=== PATIENT | female | born 1970 | race Caucasian/White ===

== ENCOUNTER 2016-11-11 13:25 | Emergency (ER) | payer OTHER ==
[~2016-11-11] VITALS: Ht 175.3 cm; Wt 74.4 kg
[~2016-11-11 13:25] MED LIST: OMEP40CA PO
[2016-11-11] MEDS ORDERED: TDAP DIPH,PERTUSS,TET VAC/PF 0.5 ML DISP.SYRIN IM ONE ×2 (14:15→14:41)
[2016-11-11] MEDS ORDERED: predniSONE 20 MG TABLET PO ONE (14:15)
[2016-11-11] MEDS ORDERED: predniSONE 50 MG TABLET ONE (14:42)
[2016-11-11] MEDS ORDERED: predniSONE 10 MG TABLET ONE (14:42)
--- NOTE | 2016-11-11 14:42 | NUR ---
PT WAS EVALUATED BY DR DIANE. PT WAS MEDICATED ACCORDING TO ER MD CHAUDHARY. PT TOLERATED TO MEDICATION WITHOUT COMPLICATIONS. PT WAS D/C TO HOME. D/C INSTRUCTIONS GIVEN TO THE PT.
[2016-11-11 14:45] VITALS: BP 130/72
== END 2016-11-11 14:46 | disposition home or self-care (01) ==
LOC: ER 13:25
DX: J45.901 Unspecified asthma with (acute) exacerbation (principal); F17.200 Nicotine dependence, unspecified, uncomplicated; E03.9 Hypothyroidism, unspecified; Z88.6 Allergy status to analgesic agent
CPT/HCPCS: 90715; A4663; J7512

== ENCOUNTER 2016-11-14 14:42 | Emergency (ER) | payer OTHER ==
[~2016-11-14] VITALS: Ht 175.3 cm; Wt 74.4 kg
[2016-11-14] MEDS ORDERED: PRED50TA PO (14:55)
--- NOTE | 2016-11-14 15:02 | NUR ---
Pt ambulatory to bed 3, dr yoon at bedside for exam.
--- NOTE | 2016-11-14 16:00 | NUR ---
Pt dc'ed home w/ aci .
[2016-11-14 16:03] VITALS: BP 128/74
== END 2016-11-14 16:03 | disposition home or self-care (01) ==
LOC: ER 14:50
DX: J40 Bronchitis, not specified as acute or chronic (principal); E03.9 Hypothyroidism, unspecified; F17.200 Nicotine dependence, unspecified, uncomplicated
CPT/HCPCS: 71010; 99283; A4663

== ENCOUNTER 2017-08-27 12:18 | Emergency (ER) | payer MEDICAID ==
[~2017-08-27] VITALS: Ht 165.1 cm; Wt 77.1 kg
[~2017-08-27 12:18] MED LIST changes: -OMEP40CA PO; +PRED50TA PO
[2017-08-27] MEDS ORDERED: IV NORMAL SALINE 1000 ML BAG IV ONE (12:30)
[2017-08-27] MEDS ORDERED: ONDANSETRON 4 MG/2 ML VIAL IV ONE (12:30)
[2017-08-27] MEDS ORDERED: LORAZEPAM 2 MG/1 ML VIAL IV ONE (12:30)
[2017-08-27 12:48] LABS: BASOPHILS % (AUTO) 0.3 % (0.0-2.0); EOSINOPHILS % (AUTO) 0.6 % (0.0-7.0); HEMATOCRIT 45.3 % (31.2-41.9); LYMPHOCYTES # (AUTO) 1.1 K/uL (20.0-40.0); LYMPHOCYTES % (AUTO) 19.4 % (20.5-51.5); MEAN CORPUSCULAR HEMOGLOBIN 34.8 uug (24.7-32.8); MEAN CORPUSCULAR HGB CONC 35 g/dL (32.3-35.6); MEAN CORPUSCULAR VOLUME 98.6 fL (75.5-95.3); MONOCYTES # (AUTO) 0.4 K/uL (2.0-10.0); MONOCYTES % (AUTO) 7.3 % (0.0-11.0); NEUTROPHILS # (AUTO) 4.2 K/uL (1.8-8.9); NEUTROPHILS % (AUTO) 72.4 % (38.5-71.5); PLATELET COUNT (AUTO) 234 K/uL (179-408); WHITE BLOOD COUNT (AUTO) 5.8 K/uL (3.8-11.8)
[2017-08-27] MEDS ORDERED: ONDANSETRON 4 MG/2 ML VIAL ONE (12:58)
[2017-08-27] MEDS ORDERED: LORAZEPAM 2 MG/1 ML VIAL ONE (12:59)
[2017-08-27 13:14] LABS: BILIRUBIN,DIRECT 0.2 mg/dL (0.0-0.2); BILIRUBIN,TOTAL 0.6 mg/dL (0.2-1.0); POTASSIUM 3.7 mmol/L (3.5-5.1); TOTAL PROTEIN, SERUM 7.1 g/dL (6.4-8.2)
--- NOTE | 2017-08-27 13:50 | NUR ---
IV removed. Catheter intact and site benign. Pressure and 4x4 gauze applied to site. No bleeding noted.
[2017-08-27 13:51] VITALS: BP 122/87
--- NOTE | 2017-08-27 13:52 | NUR ---
Patient discharged to home in stable conditon. Written and verbal after care instructions given. Patient verbalizes understanding of instructions.
== END 2017-08-27 13:53 | disposition home or self-care (01) ==
LOC: ER 12:18
DX: F11.23 Opioid dependence with withdrawal (principal); F41.9 Anxiety disorder, unspecified; F17.200 Nicotine dependence, unspecified, uncomplicated; E03.9 Hypothyroidism, unspecified
CPT/HCPCS: 36415; 83690; 84703; 85025; A4663; J2060; J2405; J7030

== ENCOUNTER 2017-09-07 18:40 | Emergency (ER) | payer MEDICAID ==
[~2017-09-07] VITALS: Ht 165.1 cm; Wt 77.1 kg
[2017-09-07] MEDS ORDERED: LORAZEPAM 2 MG/1 ML VIAL IV ONE (19:15)
[2017-09-07] MEDS ORDERED: METOCLOPRAMIDE HCL 10 MG/2 ML VIAL IV ONE (19:15)
[2017-09-07] MEDS ORDERED: IV NORMAL SALINE 1000 ML BAG IV ONE (19:15)
[2017-09-07 19:37] LABS: BASOPHILS # (AUTO) 0.1 K/uL (0.0-8.0); BASOPHILS % (AUTO) 0.5 % (0.0-2.0); EOSINOPHILS % (AUTO) 0.1 % (0.0-7.0); HEMATOCRIT 45.9 % (31.2-41.9); HEMOGLOBIN 15.8 g/dL (10.9-14.3); LYMPHOCYTES # (AUTO) 0.9 K/uL (20.0-40.0); LYMPHOCYTES % (AUTO) 7.9 % (20.5-51.5); MEAN CORPUSCULAR HEMOGLOBIN 34.2 uug (24.7-32.8); MEAN CORPUSCULAR HGB CONC 34 g/dL (32.3-35.6); MEAN CORPUSCULAR VOLUME 99.7 fL (75.5-95.3); MONOCYTES # (AUTO) 0.8 K/uL (2.0-10.0); MONOCYTES % (AUTO) 6.9 % (0.0-11.0); NEUTROPHILS % (AUTO) 84.6 % (38.5-71.5); PLATELET COUNT (AUTO) 284 K/uL (179-408); RED BLOOD CELL COUNT(AUTO) 4.61 MIL/uL (3.63-4.92); WHITE BLOOD COUNT (AUTO) 11.9 K/uL (3.8-11.8)
[2017-09-07 19:41] LABS: CREATININE 0.9 mg/dL (0.6-1.3); POTASSIUM 3.9 mmol/L (3.5-5.1)
--- NOTE | 2017-09-07 19:46 | NUR ---
PT IN BED. BOYFRIEND IS AT BEDSIDE. A&OX4. VSS. BREATHING IS REGULAR AND UNLABORED. LABS DRAWN AND ORDERED MED GIVEN.
[2017-09-07 19:47] LABS: BILIRUBIN,DIRECT 0.3 mg/dL (0.0-0.2); BILIRUBIN,TOTAL 0.8 mg/dL (0.2-1.0); TOTAL PROTEIN, SERUM 7.8 g/dL (6.4-8.2)
[2017-09-07] MEDS ORDERED: METOCLOPRAMIDE HCL 10 MG/2 ML VIAL ONE (19:47)
[2017-09-07] MEDS ORDERED: LORAZEPAM 2 MG/1 ML VIAL ONE (19:48)
--- NOTE | 2017-09-07 21:15 | NUR ---
PT DISCHARGED. BOYFRIEND TO GIVE RIDE HOME. PT INSTRUCTED NOT TO DRIVE FOR THE REST OF THE NIGHT. PT VERBALIZED UNDERSTANDING OF THESE INSTRUCTIONS.
[2017-09-07 21:18] VITALS: BP 129/72
== END 2017-09-07 21:15 | disposition home or self-care (01) ==
LOC: ER 18:41
DX: G89.29 Other chronic pain (principal); E86.0 Dehydration; E03.9 Hypothyroidism, unspecified; R11.2 Nausea with vomiting, unspecified; F17.200 Nicotine dependence, unspecified, uncomplicated
CPT/HCPCS: 36415; 70030-TC; 83690; 84703; 85025; 93005; A4663; J2060; J2765; J7030

== ENCOUNTER 2018-09-11 16:31 | Emergency (ER) | payer MEDICAID, OTHER ==
[~2018-09-11] VITALS: Ht 175.3 cm; Wt 81.6 kg
[2018-09-11] MEDS ORDERED: IV NORMAL SALINE 1000 ML BAG IV ONE ×2 (16:45→18:15)
[2018-09-11] MEDS ORDERED: LORAZEPAM 2 MG/1 ML VIAL IV ONE (16:45)
[2018-09-11] MEDS ORDERED: ONDANSETRON 4 MG/2 ML VIAL IV ONE (16:45)
[2018-09-11] MEDS ORDERED: ONDANSETRON 4 MG/2 ML VIAL ONE (16:49)
[2018-09-11] MEDS ORDERED: LORAZEPAM 2 MG/1 ML VIAL ONE (16:50)
[2018-09-11 17:08] LABS: BASOPHILS % (AUTO) 0.4 % (0.0-2.0); EOSINOPHILS # (AUTO) 0.1 K/uL (0.0-0.7); HEMATOCRIT 46.8 % (31.2-41.9); HEMOGLOBIN 16.3 g/dL (10.9-14.3); LYMPHOCYTES # (AUTO) 1.5 K/uL (20.0-40.0); LYMPHOCYTES % (AUTO) 17.6 % (20.5-51.5); MEAN CORPUSCULAR HEMOGLOBIN 34.8 uug (24.7-32.8); MEAN CORPUSCULAR HGB CONC 35 g/dL (32.3-35.6); MEAN CORPUSCULAR VOLUME 99.6 fL (75.5-95.3); MONOCYTES # (AUTO) 0.5 K/uL (2.0-10.0); MONOCYTES % (AUTO) 6.4 % (0.0-11.0); NEUTROPHILS # (AUTO) 6.2 K/uL (1.8-8.9); NEUTROPHILS % (AUTO) 74.6 % (38.5-71.5); PLATELET COUNT (AUTO) 273 K/uL (179-408); RED BLOOD CELL COUNT(AUTO) 4.69 MIL/uL (3.63-4.92); WHITE BLOOD COUNT (AUTO) 8.3 K/uL (3.8-11.8)
[2018-09-11 17:14] LABS: CREATININE 0.9 mg/dL (0.6-1.3); POTASSIUM 3.5 mmol/L (3.5-5.1)
[2018-09-11 17:20] LABS: BILIRUBIN,DIRECT 0.1 mg/dL (0.0-0.2); BILIRUBIN,TOTAL 0.5 mg/dL (0.2-1.0); TOTAL PROTEIN, SERUM 7.5 g/dL (6.4-8.2)
[2018-09-11 18:31] LABS: *BILIRUBIN,URIN NEGATIVE (NEGATIVE); *BLOOD, URINE Trace-lysed (NEGATIVE); *COLOR,URINE YELLOW (YELLOW); *KETONES,URINE NEGATIVE (NEGATIVE); *UROBILINOGEN,URINE 0.2 E.U./dl (NORMAL); LEUKOCYTE ESTERASE ,URINE NEGATIVE (NEGATIVE); NITRITE, URINE NEGATIVE (NEGATIVE); UGLUCOSE NEGATIVE (NEGATIVE)
[2018-09-11 18:33] LABS: *URINE HCG, QUAL NEGATIVE (NEGATIVE)
--- NOTE | 2018-09-11 18:35 | NUR ---
IV removed. Catheter intact and site benign. Pressure and 4x4 gauze applied to site. No bleeding noted. Patient discharged to home in stable conditon & brisk steady gait. Written and verbal after care instructions given to patient and boyfriend. Patient and boyfriend verbalized understanding of instructions.
[2018-09-11 18:39] LABS: *CLARITY,URINE SLIGHTLY HAZY (CLEAR)
[2018-09-11 18:40] LABS: BACTERIA,URINE FEW /HPF (NONE SEEN); RBC,URINE 0-3 /HPF (0-3); SQUAMOUS EPITHELIAL CELL,UR MODERATE /HPF (NONE SEEN); WBC,URINE 0-3 /HPF (0-3)
== END 2018-09-11 18:38 | disposition home or self-care (01) ==
LOC: ER 16:32
DX: F11.23 Opioid dependence with withdrawal (principal); E03.9 Hypothyroidism, unspecified; F17.200 Nicotine dependence, unspecified, uncomplicated
CPT/HCPCS: 36415; 80048; 80076; 81001; 83690; 84703; 85025; 93005; 96374; 96375; 99284; J2060; J2405; A4663; J7030

== ENCOUNTER 2018-12-01 13:41 | Emergency (ER) | payer MEDICAID ==
[~2018-12-01] VITALS: Ht 175.3 cm; Wt 81.6 kg
[2018-12-01] MEDS ORDERED: ONDANSETRON 4 MG/2 ML VIAL IV ONE (14:15)
[2018-12-01] MEDS ORDERED: IV NORMAL SALINE 1000 ML BAG IV ONE (14:15)
[2018-12-01] MEDS ORDERED: FAMOTIDINE. 20 MG/2 ML VIAL IV ONE ×2 (14:15→14:17)
[2018-12-01] MEDS ORDERED: LORAZEPAM 2 MG/1 ML VIAL IV ONE (14:15)
[2018-12-01] MEDS ORDERED: LORAZEPAM 2 MG/1 ML VIAL ONE (14:16)
[2018-12-01] MEDS ORDERED: ONDANSETRON 4 MG/2 ML VIAL ONE (14:17)
[2018-12-01 14:23] LABS: BASOPHILS # (AUTO) 0.1 K/uL (0.0-8.0); EOSINOPHILS % (AUTO) 0.3 % (0.0-7.0); HEMATOCRIT 43.6 % (31.2-41.9); HEMOGLOBIN 15.2 g/dL (10.9-14.3); LYMPHOCYTES # (AUTO) 0.9 K/uL (20.0-40.0); LYMPHOCYTES % (AUTO) 8.9 % (20.5-51.5); MEAN CORPUSCULAR HEMOGLOBIN 34.1 uug (24.7-32.8); MEAN CORPUSCULAR HGB CONC 35 g/dL (32.3-35.6); MONOCYTES # (AUTO) 0.8 K/uL (2.0-10.0); MONOCYTES % (AUTO) 7.7 % (0.0-11.0); NEUTROPHILS # (AUTO) 8.3 K/uL (1.8-8.9); NEUTROPHILS % (AUTO) 82.1 % (38.5-71.5); PLATELET COUNT (AUTO) 210 K/uL (179-408); RED BLOOD CELL COUNT(AUTO) 4.45 MIL/uL (3.63-4.92); WHITE BLOOD COUNT (AUTO) 10.1 K/uL (3.8-11.8)
--- NOTE | 2018-12-01 14:28 | NUR ---
PT IS IN ROOM #1B. DR PINO EVALUATED THE PT.
[2018-12-01 14:29] LABS: BILIRUBIN,DIRECT 0.3 mg/dL (0.0-0.2); BILIRUBIN,TOTAL 1.1 mg/dL (0.2-1.0); CREATININE 0.8 mg/dL (0.6-1.3); POTASSIUM 3.4 mmol/L (3.5-5.1); TOTAL PROTEIN, SERUM 6.8 g/dL (6.4-8.2)
[2018-12-01 14:31] LABS: ETHANOL < 3 MG/DL (0-0)
[2018-12-01] MEDS ORDERED: CHLORDIAZEPOXIDE HCL 25 MG CAPSULE PO ONE (15:15)
[2018-12-01] MEDS ORDERED: CHLORDIAZEPOXIDE HCL 25 MG CAPSULE ONE (15:26)
--- NOTE | 2018-12-01 15:35 | NUR ---
PT WAS D/C'D TO HOME. D/C INSTRUCTIONS GIVEN TO THE PT.
[2018-12-01 15:36] VITALS: BP 131/77
== END 2018-12-01 15:37 | disposition home or self-care (01) ==
LOC: ER 13:41
DX: F41.9 Anxiety disorder, unspecified (principal); F10.239 Alcohol dependence with withdrawal, unspecified; F10.10 Alcohol abuse, uncomplicated; E03.9 Hypothyroidism, unspecified; F17.200 Nicotine dependence, unspecified, uncomplicated; Y90.0 Blood alcohol level of less than 20 mg/100 ml
CPT/HCPCS: 36415; 71045; 80048; 80076; 83690; 84702; 85025; 93005; 96361; 96374; 96375; 99284; G0480; J2060; J2405; J3490; A4663; J7030

== ENCOUNTER 2019-01-02 18:15 | Emergency (ER) | payer MEDICAID ==
[~2019-01-02] VITALS: Ht 175.3 cm; Wt 81.6 kg
[2019-01-02] MEDS ORDERED: LORAZEPAM 2 MG/1 ML VIAL IV ONE (18:45)
[2019-01-02] MEDS ORDERED: PANTOPRAZOLE SODIUM 40 MG VIAL IV ONE (18:45)
[2019-01-02] MEDS ORDERED: ONDANSETRON 4 MG/2 ML VIAL IV ONE (18:45)
[2019-01-02] MEDS ORDERED: IV NORMAL SALINE 1000 ML BAG IV ONE (18:45)
[2019-01-02] MEDS ORDERED: ONDANSETRON 4 MG/2 ML VIAL ONE (18:55)
[2019-01-02] MEDS ORDERED: PANTOPRAZOLE SODIUM 40 MG VIAL ONE (18:55)
[2019-01-02] MEDS ORDERED: LORAZEPAM 2 MG/1 ML VIAL ONE (18:56)
[2019-01-02 19:01] LABS: BASOPHILS # (AUTO) 0.1 K/uL (0.0-8.0); BASOPHILS % (AUTO) 0.8 % (0.0-2.0); EOSINOPHILS % (AUTO) 0.2 % (0.0-7.0); HEMOGLOBIN 15.4 g/dL (10.9-14.3); LYMPHOCYTES # (AUTO) 1.3 K/uL (20.0-40.0); MEAN CORPUSCULAR HGB CONC 34 g/dL (32.3-35.6); MEAN CORPUSCULAR VOLUME 96.3 fL (75.5-95.3); MONOCYTES # (AUTO) 0.8 K/uL (2.0-10.0); NEUTROPHILS # (AUTO) 9.3 K/uL (1.8-8.9); PLATELET COUNT (AUTO) 246 K/uL (179-408); RED BLOOD CELL COUNT(AUTO) 4.68 MIL/uL (3.63-4.92); WHITE BLOOD COUNT (AUTO) 11.5 K/uL (3.8-11.8)
[2019-01-02 19:07] LABS: POTASSIUM 3.1 mmol/L (3.5-5.1)
[2019-01-02 19:13] LABS: BILIRUBIN,DIRECT 0.2 mg/dL (0.0-0.2); BILIRUBIN,TOTAL 0.9 mg/dL (0.2-1.0); TOTAL PROTEIN, SERUM 7.5 g/dL (6.4-8.2)
--- NOTE | 2019-01-02 19:43 | NUR ---
IV removed. Catheter intact and site benign. Pressure and 4x4 gauze applied to site. No bleeding noted.
--- NOTE | 2019-01-02 19:47 | NUR ---
Patient discharged to home in stable conditon. Written and verbal after care instructions given. Patient verbalizes understanding of instructions. Pt ambulated out of ER with stable gait with family. Pt's boyfriend to pick her up. All belongings with patient. No acute distress noted. AAox4.
[2019-01-02 19:48] VITALS: BP 127/77
== END 2019-01-02 19:49 | disposition home or self-care (01) ==
LOC: ER 18:15
DX: F10.239 Alcohol dependence with withdrawal, unspecified (principal); E03.9 Hypothyroidism, unspecified; F17.200 Nicotine dependence, unspecified, uncomplicated; Y90.8 Blood alcohol level of 240 mg/100 ml or more
CPT/HCPCS: 36415; 80048; 80076; 83690; 85025; 96361; 96374; 96375; 99283; C9113; J2060; J2405; A4663; J7030

== ENCOUNTER 2019-01-30 08:40 | Emergency (ER) | payer MEDICAID ==
[~2019-01-30] VITALS: Ht 175.3 cm; Wt 81.6 kg
[2019-01-30] MEDS ORDERED: PANTOPRAZOLE SODIUM 40 MG VIAL IV ONE (09:00)
[2019-01-30] MEDS ORDERED: IV NORMAL SALINE 1000 ML BAG IV ONE ×2 (09:00→10:30)
[2019-01-30] MEDS ORDERED: HYDROMORPHONE 1 MG/1 ML DISP.SYRIN IV ONE (09:00)
[2019-01-30] MEDS ORDERED: ONDANSETRON 4 MG/2 ML VIAL IV ONE ×2 (09:00→10:30)
[2019-01-30 09:12] LABS: BASOPHILS # (AUTO) 0.1 K/uL (0.0-8.0); BASOPHILS % (AUTO) 1.2 % (0.0-2.0); EOSINOPHILS % (AUTO) 0.8 % (0.0-7.0); HEMATOCRIT 43.1 % (31.2-41.9); HEMOGLOBIN 14.8 g/dL (10.9-14.3); LYMPHOCYTES # (AUTO) 1.6 K/uL (20.0-40.0); MEAN CORPUSCULAR HEMOGLOBIN 32.9 uug (24.7-32.8); MEAN CORPUSCULAR HGB CONC 34 g/dL (32.3-35.6); MEAN CORPUSCULAR VOLUME 96.1 fL (75.5-95.3); MONOCYTES # (AUTO) 0.6 K/uL (2.0-10.0); NEUTROPHILS # (AUTO) 2.2 K/uL (1.8-8.9); PLATELET COUNT (AUTO) 239 K/uL (179-408); RED BLOOD CELL COUNT(AUTO) 4.49 MIL/uL (3.63-4.92); WHITE BLOOD COUNT (AUTO) 4.5 K/uL (3.8-11.8)
[2019-01-30] MEDS ORDERED: PANTOPRAZOLE SODIUM 40 MG VIAL ONE (09:14)
[2019-01-30] MEDS ORDERED: HYDROMORPHONE 1 MG/1 ML DISP.SYRIN ONE (09:14)
[2019-01-30] MEDS ORDERED: ONDANSETRON 4 MG/2 ML VIAL ONE ×2 (09:14→10:37)
--- NOTE | 2019-01-30 09:22 | NUR ---
PT IS IN ROOM #2B. DR MARRUFO EVALUATED THE PT.
[2019-01-30 09:37] LABS: BILIRUBIN,DIRECT 0.2 mg/dL (0.0-0.2); BILIRUBIN,TOTAL 0.8 mg/dL (0.2-1.0); CREATININE 1.1 mg/dL (0.6-1.3); POTASSIUM 3.8 mmol/L (3.5-5.1); TOTAL PROTEIN, SERUM 6.6 g/dL (6.4-8.2)
[2019-01-30] MEDS ORDERED: LORAZEPAM 2 MG/1 ML VIAL IV ONE (10:30)
[2019-01-30] MEDS ORDERED: LORAZEPAM 2 MG/1 ML VIAL ONE (10:48)
[2019-01-30 11:22] VITALS: BP 137/77
--- NOTE | 2019-01-30 11:22 | NUR ---
PT WAS D/C'd TO HOME. D/C INSTRUCTIONS GIVEN TO THE PT.
== END 2019-01-30 11:23 | disposition home or self-care (01) ==
LOC: ER 08:42
DX: F10.239 Alcohol dependence with withdrawal, unspecified (principal); R19.7 Diarrhea, unspecified; E03.9 Hypothyroidism, unspecified; F17.200 Nicotine dependence, unspecified, uncomplicated; Y90.9 Presence of alcohol in blood, level not specified
CPT/HCPCS: 36415; 80048; 80076; 83690; 85025; 96361; 96374; 96375; 96376; 99283; C9113; J1170; J2060; J2405 ×2; A4663; J7030

== ENCOUNTER 2019-01-31 13:35 | Emergency (ER) | payer MEDICAID ==
[~2019-01-31] VITALS: Ht 175.3 cm; Wt 81.6 kg
[2019-01-31] MEDS ORDERED: IV NORMAL SALINE 1000 ML BAG IV ONE (14:00)
[2019-01-31] MEDS ORDERED: ONDANSETRON HCL 4 MG TABLET PO ONE (14:00)
[2019-01-31] MEDS ORDERED: LORAZEPAM 2 MG/1 ML VIAL IV ONE (14:00)
[2019-01-31] MEDS ORDERED: LORAZEPAM 2 MG/1 ML VIAL ONE (14:19)
[2019-01-31 14:22] LABS: EOSINOPHILS # (AUTO) 0.1 K/uL (0.0-0.7); LYMPHOCYTES # (AUTO) 0.9 K/uL (20.0-40.0); MEAN CORPUSCULAR HGB CONC 34 g/dL (32.3-35.6); MONOCYTES # (AUTO) 0.7 K/uL (2.0-10.0); NEUTROPHILS # (AUTO) 4.5 K/uL (1.8-8.9); RED BLOOD CELL COUNT(AUTO) 4.48 MIL/uL (3.63-4.92)
[2019-01-31 14:26] LABS: BASOPHILS % (AUTO) 0.6 % (0.0-2.0); HEMATOCRIT 43.2 % (31.2-41.9); HEMOGLOBIN 14.5 g/dL (10.9-14.3); LYMPHOCYTES % (AUTO) 13.9 % (20.5-51.5); MEAN CORPUSCULAR HEMOGLOBIN 32.5 uug (24.7-32.8); MEAN CORPUSCULAR VOLUME 96.5 fL (75.5-95.3); MONOCYTES % (AUTO) 11.6 % (0.0-11.0); NEUTROPHILS % (AUTO) 71.9 % (38.5-71.5)
[2019-01-31 14:28] LABS: PLATELET COUNT (AUTO) 177 K/uL (179-408); WHITE BLOOD COUNT (AUTO) 6.3 K/uL (3.8-11.8)
[2019-01-31 14:29] LABS: POTASSIUM 3.5 mmol/L (3.5-5.1)
[2019-01-31] MEDS ORDERED: ONDANSETRON 4 MG/2 ML VIAL ONE (14:29)
[2019-01-31] MEDS ORDERED: ONDANSETRON IV *ER 4 MG/2 ML VIAL IV ONE (14:30)
[2019-01-31] MEDS ORDERED: FAMOTIDINE. 20 MG/2 ML VIAL IV ONE ×2 (14:30)
--- NOTE | 2019-01-31 14:30 | NUR ---
MD AT BEDSIDE FO HISTORY AND PHYSICAL PT RECEIVED AMBULATORY CO NAUSEA AND VOMITING FOR 6 DAYS. ALSO CO TEMPORAL HEADACHE. DENIES TRAUMA, DENIES SOB. UNK ORAL INTAKE FOR THE PAST 6DAYS
[2019-01-31 14:35] LABS: BILIRUBIN,DIRECT 0.4 mg/dL (0.0-0.2); BILIRUBIN,TOTAL 1.5 mg/dL (0.2-1.0); TOTAL PROTEIN, SERUM 6.9 g/dL (6.4-8.2)
--- NOTE | 2019-01-31 14:45 | NUR ---
I OBSERVED PT DRINKING WATER, DENIES N/V.
[2019-01-31 15:32] VITALS: BP 122/78
--- NOTE | 2019-01-31 15:34 | NUR ---
IV removed. Catheter intact and site benign. Pressure and 4x4 gauze applied to site. No bleeding noted.
--- NOTE | 2019-01-31 15:36 | NUR ---
Patient discharged to home in stable conditon. Written and verbal after care instructions given. Patient verbalizes understanding of instructions.
== END 2019-01-31 15:36 | disposition home or self-care (01) ==
LOC: ER 13:35
DX: F10.239 Alcohol dependence with withdrawal, unspecified (principal); K29.20 Alcoholic gastritis without bleeding; E03.9 Hypothyroidism, unspecified; F17.200 Nicotine dependence, unspecified, uncomplicated; Y90.0 Blood alcohol level of less than 20 mg/100 ml
CPT/HCPCS: 36415; 80048; 80076; 85025; 96361; 96374; 96375; 99283; G0480; J2060; J2405; J3490; A4663; J7030

== ENCOUNTER 2019-03-29 10:20 | Emergency (ER) | payer MEDICAID ==
[~2019-03-29] VITALS: Ht 175.3 cm; Wt 90.7 kg
[2019-03-29] MEDS ORDERED: ONDANSETRON 4 MG/2 ML VIAL ONE (10:44)
[2019-03-29] MEDS ORDERED: LORAZEPAM 2 MG/1 ML VIAL ONE ×2 (10:45→13:18)
[2019-03-29] MEDS ORDERED: LORAZEPAM 2 MG/1 ML VIAL IV ONE ×2 (10:45→13:15)
[2019-03-29] MEDS ORDERED: IV NORMAL SALINE 1000 ML BAG IV ONE (10:45)
[2019-03-29] MEDS ORDERED: ONDANSETRON 4 MG/2 ML VIAL IV ONE (10:45)
[2019-03-29 10:47] LABS: BASOPHILS % (AUTO) 0.6 % (0.0-2.0); EOSINOPHILS % (AUTO) 0.1 % (0.0-7.0); HEMATOCRIT 44.8 % (31.2-41.9); HEMOGLOBIN 15.1 g/dL (10.9-14.3); LYMPHOCYTES # (AUTO) 0.8 K/uL (20.0-40.0); LYMPHOCYTES % (AUTO) 10.8 % (20.5-51.5); MEAN CORPUSCULAR HEMOGLOBIN 32.8 uug (24.7-32.8); MEAN CORPUSCULAR HGB CONC 34 g/dL (32.3-35.6); MEAN CORPUSCULAR VOLUME 97.2 fL (75.5-95.3); MONOCYTES # (AUTO) 0.8 K/uL (2.0-10.0); MONOCYTES % (AUTO) 10.2 % (0.0-11.0); NEUTROPHILS # (AUTO) 6.1 K/uL (1.8-8.9); NEUTROPHILS % (AUTO) 78.3 % (38.5-71.5); PLATELET COUNT (AUTO) 301 K/uL (179-408); RED BLOOD CELL COUNT(AUTO) 4.61 MIL/uL (3.63-4.92); WHITE BLOOD COUNT (AUTO) 7.8 K/uL (3.8-11.8)
[2019-03-29 10:54] LABS: CARBON DIOXIDE 23 mmol/L (21-32); CHLORIDE 99 mmol/L (98-107); CREATININE 0.8 mg/dL (0.6-1.3); GLUCOSE 94 mg/dL (74-106); POTASSIUM 3.9 mmol/L (3.5-5.1); UREA NITROGEN, BLOOD 9 mg/dL (7-18)
[2019-03-29 11:06] LABS: ALANINE AMINOTRANSFERASE 39 U/L (14-59); ALKALINE PHOSPHATASE 99 U/L (50-136); ASPARTATE AMINOTRANSFERASE 44 U/L (15-37); BILIRUBIN,DIRECT 0.3 mg/dL (0.0-0.2); TOTAL PROTEIN, SERUM 7.6 g/dL (6.4-8.2)
[2019-03-29 11:09] LABS: LIPASE 1604 U/L (73-393)
[2019-03-29] MEDS ORDERED: IV NORMAL SALINE 250 ML IV ONE (11:47)
[2019-03-29] MEDS ORDERED: IOHEXOL 300MG/ML 100 ML INFUS..BTL ONE (11:47)
[2019-03-29] MEDS ORDERED: SWABABLE VALVE TRANSFER SET EA MC ONE (11:47)
[2019-03-29] MEDS ORDERED: CHLO25CA10 PO (11:48)
[2019-03-29] MEDS ORDERED: PANT40TA4 PO (11:48)
[2019-03-29] MEDS ORDERED: LEVO200T PO (11:48)
[2019-03-29] MEDS ORDERED: ERGO500040 PO (11:48)
[2019-03-29] MEDS ORDERED: ALPR0.255 PO (11:48)
[2019-03-29] MEDS ORDERED: LORA2TAB PO (11:48)
[2019-03-29] MEDS ORDERED: LEVO175T2 PO (11:48)
[2019-03-29] MEDS ORDERED: METH4TAB17 PO (11:48)
--- NOTE | 2019-03-29 11:50 | NUR ---
Pt signed consent for IV contrast.
--- NOTE | 2019-03-29 11:58 | NUR ---
pt left er for ct scan.
--- NOTE | 2019-03-29 12:20 | NUR ---
Pt back from ct. resting w/ both eyes closed. NAD noted.
[2019-03-29 12:44] LABS: *BILIRUBIN,URIN 1+ (NEGATIVE); *BLOOD, URINE 2+ (NEGATIVE); *CLARITY,URINE CLEAR (CLEAR); *COLOR,URINE YELLOW (YELLOW); *KETONES,URINE 4+ (NEGATIVE); *UROBILINOGEN,URINE 0.2 E.U./dl (NORMAL); LEUKOCYTE ESTERASE ,URINE NEGATIVE (NEGATIVE); NITRITE, URINE NEGATIVE (NEGATIVE); UGLUCOSE NEGATIVE (NEGATIVE)
[2019-03-29 13:17] LABS: BACTERIA,URINE FEW /HPF (NONE SEEN)
[2019-03-29 13:18] LABS: SQUAMOUS EPITHELIAL CELL,UR MODERATE /HPF (NONE SEEN)
--- NOTE | 2019-03-29 14:22 | NUR ---
Pt is aware of transfer and signed consent for transfer. No c/o discomfort at this time.
--- NOTE | 2019-03-29 14:43 | NUR ---
Called report to [facility], to Triny SPENCER. Report given to marine cargo surveyor. Pt left ER in stable condition, all belongings sent w/ pt.
== END 2019-03-29 14:50 | disposition short-term general hospital (02) ==
LOC: ER 10:20
DX: F10.239 Alcohol dependence with withdrawal, unspecified (principal); K85.90 Acute pancreatitis without necrosis or infection, unspecified; R19.00 Intra-abdominal and pelvic swelling, mass and lump, unspecified site; F32.9 Major depressive disorder, single episode, unspecified; F41.9 Anxiety disorder, unspecified; E03.9 Hypothyroidism, unspecified; F17.200 Nicotine dependence, unspecified, uncomplicated; Z79.899 Other long term (current) drug therapy; Y90.9 Presence of alcohol in blood, level not specified
CPT/HCPCS: 36415; 74177; 76705; 80048; 80076; 81000; 81001; 83690; 84702; 85025; 96361; 96374; 96375; 96376; 99285; J2060 ×2; J2405; Q9967; A4663; J7030; J7050

== ENCOUNTER 2019-07-03 16:24 | Emergency (ER) | payer MEDICAID ==
[~2019-07-03] VITALS: Ht 175.3 cm; Wt 90.7 kg
[~2019-07-03 16:24] MED LIST changes: +ALPR0.255 PO; +CHLO25CA10 PO; +ERGO500040 PO; +LEVO175T2 PO; +LEVO200T PO; +LORA2TAB PO; +METH4TAB17 PO; +PANT40TA4 PO; -PRED50TA PO
--- NOTE | 2019-07-03 16:47 | NUR ---
Dr. Muniz at the bedside for MSE.
[2019-07-03] MEDS ORDERED: KETOROLAC TROMETHAMINE 15 MG INJ ONE (16:55)
[2019-07-03] MEDS ORDERED: METOCLOPRAMIDE HCL 10 MG/2 ML VIAL ONE (16:55)
[2019-07-03] MEDS ORDERED: METOCLOPRAMIDE HCL 10 MG/2 ML VIAL IV ONE (17:00)
[2019-07-03] MEDS ORDERED: IV NORMAL SALINE 1000 ML BAG IV ONE (17:00)
[2019-07-03] MEDS ORDERED: KETOROLAC TROMETHAMINE 15 MG INJ IVP ONE (17:00)
[2019-07-03 17:17] LABS: BASOPHILS # (AUTO) 0.1 K/uL (0.0-8.0); EOSINOPHILS % (AUTO) 0.5 % (0.0-7.0); HEMATOCRIT 44.3 % (31.2-41.9); HEMOGLOBIN 14.9 g/dL (10.9-14.3); LYMPHOCYTES # (AUTO) 1.8 K/uL (20.0-40.0); LYMPHOCYTES % (AUTO) 27.8 % (20.5-51.5); MEAN CORPUSCULAR HGB CONC 34 g/dL (32.3-35.6); MEAN CORPUSCULAR VOLUME 94.9 fL (75.5-95.3); MONOCYTES # (AUTO) 0.5 K/uL (2.0-10.0); MONOCYTES % (AUTO) 8.3 % (0.0-11.0); NEUTROPHILS # (AUTO) 4.1 K/uL (1.8-8.9); NEUTROPHILS % (AUTO) 62.4 % (38.5-71.5); PLATELET COUNT (AUTO) 331 K/uL (179-408); RED BLOOD CELL COUNT(AUTO) 4.67 MIL/uL (3.63-4.92); WHITE BLOOD COUNT (AUTO) 6.5 K/uL (3.8-11.8)
[2019-07-03 17:27] LABS: BILIRUBIN,DIRECT 0.2 mg/dL (0.0-0.2); BILIRUBIN,TOTAL 0.9 mg/dL (0.2-1.0); CREATININE 0.9 mg/dL (0.6-1.3); POTASSIUM 3.8 mmol/L (3.5-5.1); TOTAL PROTEIN, SERUM 7.9 g/dL (6.4-8.2)
[2019-07-03] MEDS ORDERED: diphenhydrAMINE 50 MG/1 ML VIAL IV ONE (17:45)
[2019-07-03] MEDS ORDERED: diphenhydrAMINE 50 MG/1 ML VIAL ONE (17:49)
--- NOTE | 2019-07-03 18:35 | NUR ---
Patient discharged to home in stable conditon. Written and verbal after care instructions given. Patient verbalizes understanding of instructions.
== END 2019-07-03 18:35 | disposition home or self-care (01) ==
LOC: ER 16:24
DX: R11.2 Nausea with vomiting, unspecified (principal); R19.7 Diarrhea, unspecified; F10.239 Alcohol dependence with withdrawal, unspecified; E03.9 Hypothyroidism, unspecified; F17.200 Nicotine dependence, unspecified, uncomplicated; Z79.899 Other long term (current) drug therapy; Y90.5 Blood alcohol level of 100-119 mg/100 ml
CPT/HCPCS: 36415; 80048; 80076; 82140; 83690; 84484; 84702; 85025; 85730; 96361; 96374; 96375; 99283; G0480; J1200; J1885; J2765; 70030-TC; A4663; J7030

== ENCOUNTER 2019-07-22 10:25 | Emergency (ER) | payer MEDICAID ==
[~2019-07-22] VITALS: Ht 175.3 cm; Wt 86.2 kg
[2019-07-22] MEDS ORDERED: KETOROLAC TROMETHAMINE 30 MG INJ ONE (10:41)
[2019-07-22] MEDS ORDERED: KETOROLAC TROMETHAMINE 30 MG INJ IM ONE (10:45)
--- NOTE | 2019-07-22 10:52 | NUR ---
Patient discharged to home in stable conditon. Written and verbal after care instructions given. Patient verbalizes understanding of instructions.
== END 2019-07-22 10:55 | disposition home or self-care (01) ==
LOC: ER 10:25
DX: M25.562 Pain in left knee (principal); E03.9 Hypothyroidism, unspecified; F17.290 Nicotine dependence, other tobacco product, uncomplicated; Z79.899 Other long term (current) drug therapy
CPT/HCPCS: 96372; 99283; 99406; J1885; A4663

== ENCOUNTER 2019-07-26 18:49 | Emergency (ER) | payer MEDICAID ==
[~2019-07-26] VITALS: Ht 175.3 cm; Wt 81.6 kg
--- NOTE | 2019-07-26 19:45 | NUR ---
Dr. Muniz at bedside for MSE
[2019-07-26] MEDS ORDERED: MORPHINE SULFATE 2 MG/1 ML DISP.SYRIN IV ONE (20:00)
[2019-07-26] MEDS ORDERED: ONDANSETRON 4 MG/2 ML VIAL IV ONE ×2 (20:00→22:30)
[2019-07-26] MEDS ORDERED: IV NORMAL SALINE 1000 ML BAG IV ONE (20:00)
[2019-07-26 20:02] LABS: BASOPHILS % (AUTO) 0.7 % (0.0-2.0); EOSINOPHILS # (AUTO) 0.2 K/uL (0.0-0.7); EOSINOPHILS % (AUTO) 2.8 % (0.0-7.0); HEMATOCRIT 43.4 % (31.2-41.9); HEMOGLOBIN 14.7 g/dL (10.9-14.3); LYMPHOCYTES # (AUTO) 1.2 K/uL (20.0-40.0); LYMPHOCYTES % (AUTO) 18.5 % (20.5-51.5); MEAN CORPUSCULAR HEMOGLOBIN 31.7 uug (24.7-32.8); MEAN CORPUSCULAR HGB CONC 34 g/dL (32.3-35.6); MEAN CORPUSCULAR VOLUME 93.4 fL (75.5-95.3); MONOCYTES # (AUTO) 0.5 K/uL (2.0-10.0); MONOCYTES % (AUTO) 7.4 % (0.0-11.0); NEUTROPHILS # (AUTO) 4.5 K/uL (1.8-8.9); NEUTROPHILS % (AUTO) 70.6 % (38.5-71.5); PLATELET COUNT (AUTO) 283 K/uL (179-408); RED BLOOD CELL COUNT(AUTO) 4.65 MIL/uL (3.63-4.92); WHITE BLOOD COUNT (AUTO) 6.4 K/uL (3.8-11.8)
[2019-07-26] MEDS ORDERED: ONDANSETRON 4 MG/2 ML VIAL ONE ×2 (20:05→22:30)
[2019-07-26] MEDS ORDERED: MORPHINE SULFATE 4 MG/1 ML DISP.SYRIN ONE ×2 (20:05→22:29)
--- NOTE | 2019-07-26 20:11 | NUR ---
Patient taken to CT scan
[2019-07-26 20:14] LABS: CREATININE 0.9 mg/dL (0.6-1.3)
[2019-07-26 20:19] LABS: BILIRUBIN,DIRECT 0.1 mg/dL (0.0-0.2); BILIRUBIN,TOTAL 0.3 mg/dL (0.2-1.0); TOTAL PROTEIN, SERUM 7.1 g/dL (6.4-8.2)
--- NOTE | 2019-07-26 20:28 | NUR ---
Patient back from CT scan in stable condition
--- NOTE | 2019-07-26 21:31 | NUR ---
Patient is resting comfortably in bed with eyes closed, easily arousable. Breathing even and unlabored. NAD noted
[2019-07-26] MEDS ORDERED: MORPHINE SULFATE 4 MG/1 ML DISP.SYRIN IV ONE (22:30)
--- NOTE | 2019-07-26 22:51 | NUR ---
Patient in bed sleeping but easily arousable. Breathing even and unlabored. NAD noted
--- NOTE | 2019-07-26 23:27 | NUR ---
IV removed. Catheter intact and site benign. Pressure and 4x4 gauze applied to site. No bleeding noted. Patient discharged to home in stable conditon. Written and verbal after care instructions given. Patient verbalizes understanding of instructions. Patient ambulating with steady gait. Boyfriend at bedside to drive and take patient home
[2019-07-26 23:31] VITALS: BP 124/70
== END 2019-07-26 23:27 | disposition home or self-care (01) ==
LOC: ER 18:56
DX: K29.70 Gastritis, unspecified, without bleeding (principal); F10.10 Alcohol abuse, uncomplicated; R19.00 Intra-abdominal and pelvic swelling, mass and lump, unspecified site; E03.9 Hypothyroidism, unspecified; F17.200 Nicotine dependence, unspecified, uncomplicated; Z79.899 Other long term (current) drug therapy; Y90.6 Blood alcohol level of 120-199 mg/100 ml
CPT/HCPCS: 36415; 71045; 74176; 80048; 80076; 82140; 83690; 84484; 85025; 85730; 93005; 96361; 96374; 96375; 96376; 99284; G0480; J2270 ×2; J2405 ×2; 70030-TC; A4663; J7030

== ENCOUNTER 2019-07-29 15:01 | Emergency (ER) | END 2019-07-29 17:24 | disposition home or self-care (01) | DX: K29.70 Gastritis, unspecified, without bleeding (principal); E03.9 Hypothyroidism, unspecified; F17.200 Nicotine dependence, unspecified, uncomplicated; Z79.899 Other long term (current) drug therapy | CPT/HCPCS: 36415; 71045; 80048; 80076; 83690; 84484; 85025; 85730; 93005; 96361; 96374; 96375; 99284; J1170; J2405 ==

== ENCOUNTER 2019-08-24 11:40 | Emergency (ER) | payer MEDICAID ==
[~2019-08-24] VITALS: Ht 175.3 cm; Wt 88.5 kg
[~2019-08-24 11:40] MED LIST changes: -ALPR0.255 PO; -LORA2TAB PO; -PANT40TA4 PO
--- NOTE | 2019-08-24 12:00 | NUR ---
Patient ambulated with stable gait. Speech is clear, speaks in complete sentences. No acute neuro deficits noted. A/Ox4. Patient came for c/o s/p ERCP dull pain. ERCP performed 08/18/19. Denies any n/v but states she has had episodes of diarrhea. Respiratory even and unlabored, no cough no sob. Denies any cp.
[2019-08-24] MEDS ORDERED: IV NORMAL SALINE 250 ML IV ONE (12:09)
[2019-08-24] MEDS ORDERED: IOHEXOL 300MG/ML 100 ML INFUS..BTL ONE (12:09)
[2019-08-24] MEDS ORDERED: SWABABLE VALVE TRANSFER SET EA MC ONE (12:09)
[2019-08-24] MEDS ORDERED: MORPHINE SULFATE 2 MG/1 ML DISP.SYRIN IV ONE (12:15)
[2019-08-24] MEDS ORDERED: IV NORMAL SALINE 1000 ML BAG IV ONE (12:15)
[2019-08-24] MEDS ORDERED: ONDANSETRON 4 MG/2 ML VIAL IV ONE (12:15)
[2019-08-24 12:18] LABS: *BILIRUBIN,URIN NEGATIVE (NEGATIVE); *BLOOD, URINE 1+ (NEGATIVE); *CLARITY,URINE CLOUDY (CLEAR); *COLOR,URINE YELLOW (YELLOW); *KETONES,URINE NEGATIVE (NEGATIVE); *UROBILINOGEN,URINE 0.2 E.U./dl (NORMAL); LEUKOCYTE ESTERASE ,URINE NEGATIVE (NEGATIVE); NITRITE, URINE NEGATIVE (NEGATIVE); UGLUCOSE NEGATIVE (NEGATIVE)
[2019-08-24] MEDS ORDERED: MORPHINE SULFATE 4 MG/1 ML DISP.SYRIN ONE (12:18)
[2019-08-24] MEDS ORDERED: ONDANSETRON 4 MG/2 ML VIAL ONE (12:18)
[2019-08-24 12:21] LABS: BASOPHILS # (AUTO) 0.1 K/uL (0.0-8.0); BASOPHILS % (AUTO) 0.8 % (0.0-2.0); EOSINOPHILS # (AUTO) 0.1 K/uL (0.0-0.7); EOSINOPHILS % (AUTO) 1.6 % (0.0-7.0); HEMATOCRIT 42.1 % (31.2-41.9); HEMOGLOBIN 14.3 g/dL (10.9-14.3); LYMPHOCYTES # (AUTO) 0.9 K/uL (20.0-40.0); LYMPHOCYTES % (AUTO) 12.1 % (20.5-51.5); MEAN CORPUSCULAR HEMOGLOBIN 31.9 uug (24.7-32.8); MEAN CORPUSCULAR HGB CONC 34 g/dL (32.3-35.6); MONOCYTES # (AUTO) 0.6 K/uL (2.0-10.0); NEUTROPHILS % (AUTO) 77.5 % (38.5-71.5); PLATELET COUNT (AUTO) 298 K/uL (179-408); RED BLOOD CELL COUNT(AUTO) 4.47 MIL/uL (3.63-4.92); WHITE BLOOD COUNT (AUTO) 7.7 K/uL (3.8-11.8)
[2019-08-24 12:28] LABS: BACTERIA,URINE MODERATE /HPF (NONE SEEN); MUCUS,URINE FEW /LPF (0-FEW); RBC,URINE 0-3 /HPF (0-3); SQUAMOUS EPITHELIAL CELL,UR MODERATE /HPF (NONE SEEN); WBC,URINE 0-3 /HPF (0-3)
[2019-08-24 12:28] LABS: POTASSIUM 3.8 mmol/L (3.5-5.1)
[2019-08-24 12:34] LABS: BILIRUBIN,DIRECT 0.1 mg/dL (0.0-0.2); BILIRUBIN,TOTAL 0.5 mg/dL (0.2-1.0); TOTAL PROTEIN, SERUM 7.3 g/dL (6.4-8.2)
[2019-08-24 12:47] LABS: *URINE HCG, QUAL NEGATIVE (NEGATIVE)
--- NOTE | 2019-08-24 13:17 | NUR ---
Patient back in room from CT in stable condition.
[2019-08-24] MEDS ORDERED: FAMOTIDINE 20 MG TABLET PO ONE (13:45)
--- NOTE | 2019-08-24 13:53 | NUR ---
Dr. Chad WALTON paged, awaiting call back.
[2019-08-24] MEDS ORDERED: FAMOTIDINE 20 MG TABLET ONE (13:54)
--- NOTE | 2019-08-24 15:16 | NUR ---
Patient discharged to home in stable conditon. Written and verbal after care instructions given. Patient verbalizes understanding of instructions. IV removed. Catheter intact and site benign. Pressure and 4x4 gauze applied to site. No bleeding noted. Patient ambulated with stable gait. instructed patient that she may not drive, states that she will get picked up.
[2019-08-24 15:17] VITALS: BP 131/92
== END 2019-08-24 15:18 | disposition home or self-care (01) ==
LOC: ER 11:40
DX: N83.201 Unspecified ovarian cyst, right side (principal); E03.9 Hypothyroidism, unspecified; F17.200 Nicotine dependence, unspecified, uncomplicated; Z79.899 Other long term (current) drug therapy
CPT/HCPCS: 36415; 74177; 80048; 80076; 81000; 81001; 83690; 84703; 85025; 87077; 87086; 96374; 96375; 99284; J2270; J2405; Q9967; A4663; J7030; J7050

== ENCOUNTER 2019-09-16 13:10 | Emergency (ER) | payer MEDICAID ==
[~2019-09-16] VITALS: Ht 175.3 cm; Wt 88.5 kg
[2019-09-16] MEDS ORDERED: HYDROMORPHONE 1 MG/1 ML DISP.SYRIN IV ONE (13:30)
[2019-09-16] MEDS ORDERED: IV NORMAL SALINE 1000 ML BAG IV ONE (13:30)
[2019-09-16] MEDS ORDERED: ONDANSETRON 4 MG/2 ML VIAL IV ONE (13:30)
[2019-09-16] MEDS ORDERED: HYDROMORPHONE 2 MG/1 ML DISP.SYRIN ONE (13:34)
[2019-09-16] MEDS ORDERED: ONDANSETRON 4 MG/2 ML VIAL ONE (13:34)
--- NOTE | 2019-09-16 14:23 | NUR ---
Patient is resting comfortably on gurney with eyes closed. Lights dimmed. Comfort and safety measures maintained, NAD.
--- NOTE | 2019-09-16 15:19 | NUR ---
Patient is resting comfortably on gurney with eyes closed. Patient said that she feels better & wants to go home, MD notified.
--- NOTE | 2019-09-16 15:21 | NUR ---
IV removed. Catheter intact and site benign. Pressure and 4x4 gauze applied to site. No bleeding noted. Patient discharged to home in stable condition & brisk steady gait. Written and verbal after care instructions given to patient. Patient verbalized understanding & compliance of instructions. Patient said that her boyfriend is giving her a ride home.
== END 2019-09-16 15:24 | disposition home or self-care (01) ==
LOC: ER 13:10
DX: G43.909 Migraine, unspecified, not intractable, without status migrainosus (principal); E03.9 Hypothyroidism, unspecified; F17.200 Nicotine dependence, unspecified, uncomplicated; Z79.899 Other long term (current) drug therapy
CPT/HCPCS: 96374; 96375; 99284; J1170; J2405; A4663; J7030

== ENCOUNTER 2019-09-30 17:07 | Emergency (ER) | payer MEDICAID ==
[~2019-09-30] VITALS: Ht 172.7 cm; Wt 90.7 kg
[2019-09-30] MEDS ORDERED: ONDANSETRON 4 MG/2 ML VIAL IV ONE (19:00)
[2019-09-30] MEDS ORDERED: IV NORMAL SALINE 1000 ML BAG IV ONE (19:00)
[2019-09-30] MEDS ORDERED: HYDROMORPHONE 1 MG/1 ML DISP.SYRIN IV ONE (19:00)
[2019-09-30 20:39] VITALS: BP 121/96
--- NOTE | 2019-09-30 20:39 | NUR ---
Patient discharged to home in stable conditon. Written and verbal after care instructions given. Patient verbalizes understanding of instructions. PATIENT LEFT WITH STABLE GAIT.
== END 2019-09-30 20:40 | disposition home or self-care (01) ==
LOC: ER 17:08
DX: G43.909 Migraine, unspecified, not intractable, without status migrainosus (principal); R11.2 Nausea with vomiting, unspecified; R19.7 Diarrhea, unspecified; F17.200 Nicotine dependence, unspecified, uncomplicated; R05 Cough; E03.9 Hypothyroidism, unspecified; Z60.2 Problems related to living alone; Z79.899 Other long term (current) drug therapy
CPT/HCPCS: 96361; 96374; 96375; 99283; J1170; J2405; A4663; J7030

== ENCOUNTER 2019-12-06 10:37 | Emergency (ER) | payer MEDICAID ==
[~2019-12-06] VITALS: Ht 172.7 cm; Wt 90.7 kg
[2019-12-06] MEDS ORDERED: ADENOSINE 6 MG/2 ML SYR IV ONE ×4 (10:54→11:45)
--- NOTE | 2019-12-06 10:55 | NUR ---
Patient is AOx4, speaking in complete sentences, speech is clear. Patient is able to follow /comprehend directions. Gait is stable. NOTED HR AT 198BPM. ERMD AWARE. No CP. No respiratory distress noted. Respirations even & unlabored with symmetrical chest rise. No adventitious sounds noted. CC: +worsening MIGRAINE, +PHOTOPHOBIA Denies hitting head, LOC, diplopia,, balance problems, vertigo/dizziness, difficulty concentrating, phonophobia, nausea, vomiting, diarrhea.
[2019-12-06] MEDS ORDERED: IV NORMAL SALINE 1000 ML BAG IV ONE (11:00)
[2019-12-06] MEDS ORDERED: LORAZEPAM 2 MG/1 ML VIAL ONE (11:05)
[2019-12-06] MEDS ORDERED: KETOROLAC TROMETHAMINE 30 MG INJ ONE (11:08)
[2019-12-06] MEDS ORDERED: ESCI10TA PO (11:11)
[2019-12-06] MEDS ORDERED: KETOROLAC TROMETHAMINE 30 MG INJ IVP ONE (11:15)
[2019-12-06] MEDS ORDERED: LORAZEPAM 2 MG/1 ML VIAL IV ONE (11:15)
[2019-12-06 11:18] LABS: BASOPHILS % (AUTO) 0.3 % (0.0-2.0); EOSINOPHILS % (AUTO) 0.3 % (0.0-7.0); HEMATOCRIT 46.6 % (31.2-41.9); HEMOGLOBIN 15.7 g/dL (10.9-14.3); LYMPHOCYTES # (AUTO) 0.5 K/uL (20.0-40.0); LYMPHOCYTES % (AUTO) 7.2 % (20.5-51.5); MEAN CORPUSCULAR HEMOGLOBIN 31.9 uug (24.7-32.8); MEAN CORPUSCULAR HGB CONC 34 g/dL (32.3-35.6); MEAN CORPUSCULAR VOLUME 94.7 fL (75.5-95.3); MONOCYTES # (AUTO) 1.1 K/uL (2.0-10.0); MONOCYTES % (AUTO) 14.7 % (0.0-11.0); NEUTROPHILS # (AUTO) 5.6 K/uL (1.8-8.9); NEUTROPHILS % (AUTO) 77.5 % (38.5-71.5); PLATELET COUNT (AUTO) 227 K/uL (179-408); RED BLOOD CELL COUNT(AUTO) 4.92 MIL/uL (3.63-4.92); WHITE BLOOD COUNT (AUTO) 7.2 K/uL (3.8-11.8)
[2019-12-06 11:29] LABS: BILIRUBIN,DIRECT 0.1 mg/dL (0.0-0.2); BILIRUBIN,TOTAL 0.2 mg/dL (0.2-1.0); CREATININE 0.9 mg/dL (0.6-1.3); POTASSIUM 3.6 mmol/L (3.5-5.1); TOTAL PROTEIN, SERUM 7.7 g/dL (6.4-8.2)
--- NOTE | 2019-12-06 12:35 | NUR ---
Pt asleep, on L RECUMBENT at 103bpm o2sat at 95%, RA, NAD
[2019-12-06] MEDS ORDERED: methylPREDNISolone SOD SUCC 125 MG/2 ML VIAL IV ONE (13:00)
[2019-12-06] MEDS ORDERED: ACETAMINOPHEN ES 500 MG TABLET PO ONE (13:00)
[2019-12-06] MEDS ORDERED: ACETAMINOPHEN ES 500 MG TABLET ONE (13:01)
[2019-12-06] MEDS ORDERED: methylPREDNISolone SOD SUCC 125 MG/2 ML VIAL ONE ×2 (13:01→13:09)
--- NOTE | 2019-12-06 13:09 | NUR ---
Pt asleep but easily roused, still c/o 03/12 migraine Pt able to tolerate PO meds
--- NOTE | 2019-12-06 14:25 | NUR ---
Patient discharged to home in stable condition. Written and verbal after care instructions given. Patient verbalizes understanding of instructions. Stressed follow up or return to ER for worsening s/s. iv removed, dresssed.
[2019-12-06 17:03] VITALS: BP 110/72
== END 2019-12-06 14:25 | disposition home or self-care (01) ==
LOC: ER 10:37
DX: I47.1 Supraventricular tachycardia (principal); G43.909 Migraine, unspecified, not intractable, without status migrainosus; F17.201 Nicotine dependence, unspecified, in remission; Z82.49 Family history of ischemic heart disease and other diseases of the circulatory system; E03.9 Hypothyroidism, unspecified; F10.20 Alcohol dependence, uncomplicated; Y90.9 Presence of alcohol in blood, level not specified
CPT/HCPCS: 36415; 80048; 80076; 84484; 85025; 93005; 96361; 96374; 96375; 99291; J0153 ×2; J1885; J2060; J2930 ×2; 70030-TC; A4663; A9150; J7030

== ENCOUNTER 2019-12-09 06:11 | Emergency (ER) | payer MEDICAID ==
[~2019-12-09] VITALS: Ht 172.7 cm; Wt 90.7 kg
[~2019-12-09 06:11] MED LIST changes: +ESCI10TA PO
--- NOTE | 2019-12-09 06:25 | NUR ---
PATIENT ARRIVED AT THE ER WITH C/O CP/N/V/D/MIGRAINE SINCE LAST PM AFTER ETOH CONSUMPTION.
--- NOTE | 2019-12-09 06:47 | NUR ---
Dr. Abbasi at bedside for MSE.
[2019-12-09] MEDS ORDERED: KETOROLAC TROMETHAMINE 15 MG INJ ONE (06:54)
[2019-12-09] MEDS ORDERED: ONDANSETRON 4 MG/2 ML VIAL ONE (06:54)
[2019-12-09] MEDS ORDERED: IV NORMAL SALINE 1000 ML BAG IV ONE (07:00)
[2019-12-09] MEDS ORDERED: KETOROLAC TROMETHAMINE 15 MG INJ IVP ONE (07:00)
[2019-12-09] MEDS ORDERED: ONDANSETRON 4 MG/2 ML VIAL IV ONE (07:00)
--- NOTE | 2019-12-09 07:07 | NUR ---
Change of shift report given to RN Sepi.
[2019-12-09 07:14] LABS: BASOPHILS % (AUTO) 0.6 % (0.0-2.0); HEMATOCRIT 43.4 % (31.2-41.9); HEMOGLOBIN 15.1 g/dL (10.9-14.3); LYMPHOCYTES # (AUTO) 0.5 K/uL (20.0-40.0); LYMPHOCYTES % (AUTO) 6.4 % (20.5-51.5); MEAN CORPUSCULAR HEMOGLOBIN 32.5 uug (24.7-32.8); MEAN CORPUSCULAR HGB CONC 35 g/dL (32.3-35.6); MEAN CORPUSCULAR VOLUME 93.2 fL (75.5-95.3); MONOCYTES # (AUTO) 0.6 K/uL (2.0-10.0); MONOCYTES % (AUTO) 7.9 % (0.0-11.0); NEUTROPHILS # (AUTO) 6.1 K/uL (1.8-8.9); NEUTROPHILS % (AUTO) 85.1 % (38.5-71.5); PLATELET COUNT (AUTO) 199 K/uL (179-408); RED BLOOD CELL COUNT(AUTO) 4.66 MIL/uL (3.63-4.92); WHITE BLOOD COUNT (AUTO) 7.1 K/uL (3.8-11.8)
[2019-12-09 07:25] LABS: CARBON DIOXIDE 21 mmol/L (21-32); CHLORIDE 99 mmol/L (98-107); CREATININE 1.3 mg/dL (0.6-1.3); GLUCOSE 107 mg/dL (74-106); POTASSIUM 3.7 mmol/L (3.5-5.1); UREA NITROGEN, BLOOD 10 mg/dL (7-18)
--- NOTE | 2019-12-09 07:25 | NUR ---
PT REQUESTING FOR " SOMETHING TO SETTLE MY NERVES". NOTIFIED.
[2019-12-09] MEDS ORDERED: LORAZEPAM 2 MG/1 ML VIAL IV ONE (07:30)
[2019-12-09 07:31] LABS: ALANINE AMINOTRANSFERASE 38 U/L (14-59); ALKALINE PHOSPHATASE 80 U/L (50-136); ASPARTATE AMINOTRANSFERASE 45 U/L (15-37); BILIRUBIN,DIRECT < 0.1 mg/dL (0.0-0.2); BILIRUBIN,TOTAL 0.3 mg/dL (0.2-1.0); TOTAL PROTEIN, SERUM 7.2 g/dL (6.4-8.2)
[2019-12-09] MEDS ORDERED: LORAZEPAM 2 MG/1 ML VIAL ONE (07:31)
[2019-12-09 07:32] LABS: *BILIRUBIN,URIN NEGATIVE (NEGATIVE); *BLOOD, URINE NEGATIVE (NEGATIVE); *CLARITY,URINE HAZY (CLEAR); *COLOR,URINE YELLOW (YELLOW); *KETONES,URINE TRACE (NEGATIVE); *UROBILINOGEN,URINE 0.2 E.U./dl (NORMAL); LEUKOCYTE ESTERASE ,URINE NEGATIVE (NEGATIVE); NITRITE, URINE NEGATIVE (NEGATIVE); PH,URINE 5.5 (5.0-8.0); UGLUCOSE NEGATIVE (NEGATIVE)
[2019-12-09 07:39] LABS: LIPASE 248 U/L (73-393)
[2019-12-09 07:41] LABS: BACTERIA,URINE NONE SEEN /HPF (NONE SEEN); MUCUS,URINE MODERATE /LPF (0-FEW); RBC,URINE 0-3 /HPF (0-3); SQUAMOUS EPITHELIAL CELL,UR MODERATE /HPF (NONE SEEN); WBC,URINE 0-3 /HPF (0-3)
[2019-12-09 07:42] LABS: *URINE HCG, QUAL NEGATIVE (NEGATIVE)
[2019-12-09 08:16] VITALS: BP 121/77
--- NOTE | 2019-12-09 08:17 | NUR ---
Patient discharged to home in stable condition. Written and verbal after care instructions given. Patient verbalizes understanding of instructions. pt walks in steady gait. pt not driving. Stressed follow up or return to ER for worsening s/s.
[2019-12-10] MEDS ORDERED: CHLO25CA22 PO (14:14)
== END 2019-12-09 08:17 | disposition home or self-care (01) ==
LOC: ER 06:16
DX: R11.10 Vomiting, unspecified (principal); G43.909 Migraine, unspecified, not intractable, without status migrainosus; F10.10 Alcohol abuse, uncomplicated; E03.9 Hypothyroidism, unspecified; R07.9 Chest pain, unspecified; R53.81 Other malaise
CPT/HCPCS: 36415; 80048; 80076; 81001; 83690; 84703; 85025; 93005; 96361; 96374; 96375; 99284; J1885; J2060; J2405; A4663; J7030

== ENCOUNTER 2019-12-10 13:59 | Emergency (ER) | payer MEDICAID ==
[~2019-12-10] VITALS: Ht 172.7 cm; Wt 90.7 kg
[2019-12-10] MEDS ORDERED: CHLO25CA22 PO (14:14)
[2019-12-10] MEDS ORDERED: BENZONATATE 100 MG CAPSULE PO ONE (14:45)
[2019-12-10] MEDS ORDERED: IBUPROFEN 800 MG TABLET PO ONE (14:45)
[2019-12-10] MEDS ORDERED: IBUPROFEN 800 MG TABLET ONE (14:47)
[2019-12-10] MEDS ORDERED: BENZONATATE 100 MG CAPSULE ONE (14:47)
[2019-12-10] MEDS ORDERED: levoFLOXacin 750 MG TABLET PO ONE (15:45)
[2019-12-10] MEDS ORDERED: HYDROCODONE/APAP 10-325 MG TABLET PO ONE (15:45)
[2019-12-10] MEDS ORDERED: HYDROCODONE/APAP 10-325 MG TABLET ONE (15:48)
[2019-12-10] MEDS ORDERED: levoFLOXacin 750 MG TABLET ONE (15:48)
--- NOTE | 2019-12-10 15:59 | NUR ---
PT ON ISOLATION/AIRBORNE/DROPLET PRECAUTIONS MONITORED ACCORDINGLY
--- NOTE | 2019-12-10 16:00 | NUR ---
COVID TEST INITIATED(NASOPAHRYNX)
--- NOTE | 2019-12-10 16:14 | NUR ---
Patient discharged to home in stable condition. Written and verbal after care instructions given. Patient verbalizes understanding of instructions. Stressed follow up or return to ER for worsening s/s. ambulatory w. stable gait
[2019-12-10 16:19] VITALS: BP 124/90
== END 2019-12-10 16:20 | disposition home or self-care (01) ==
LOC: ER 14:04
DX: U07.1 COVID-19 (principal); J12.89 Other viral pneumonia; G43.909 Migraine, unspecified, not intractable, without status migrainosus; E03.9 Hypothyroidism, unspecified; Z79.890 Hormone replacement therapy; Z90.49 Acquired absence of other specified parts of digestive tract; F10.20 Alcohol dependence, uncomplicated
CPT/HCPCS: 71045; A4663

== ENCOUNTER 2020-09-10 13:38 | Emergency (ER) | payer MEDICAID ==
[~2020-09-10] VITALS: Ht 172.7 cm; Wt 93.0 kg
[~2020-09-10 13:38] MED LIST changes: +CHLO25CA22 PO; -METH4TAB17 PO
[2020-09-10] MEDS ORDERED: HYDR-3980 PO (13:55)
[2020-09-10] MEDS ORDERED: ATOR10TA PO (13:55)
--- NOTE | 2020-09-10 13:55 | NUR ---
at bedside for assessment
[2020-09-10] MEDS ORDERED: ONDANSETRON 4 MG/2 ML VIAL IV ONE ×2 (14:00→15:15)
[2020-09-10] MEDS ORDERED: IV NORMAL SALINE 1000 ML BAG IV ONE (14:00)
[2020-09-10] MEDS ORDERED: HYDROMORPHONE 1 MG/1 ML DISP.SYRIN IV ONE ×2 (14:00→15:15)
[2020-09-10] MEDS ORDERED: ONDANSETRON 4 MG/2 ML VIAL ONE ×2 (14:06→15:13)
[2020-09-10] MEDS ORDERED: HYDROMORPHONE 1 MG/1 ML DISP.SYRIN ONE ×2 (14:06→15:12)
[2020-09-10] MEDS ORDERED: IV NORMAL SALINE 250 ML IV ONE (14:27)
[2020-09-10] MEDS ORDERED: IOHEXOL 300MG/ML 100 ML INFUS..BTL ONE (14:27)
[2020-09-10] MEDS ORDERED: SWABABLE VALVE TRANSFER SET EA MC ONE (14:27)
[2020-09-10 14:28] LABS: HEMATOCRIT 44.9 % (31.2-41.9); HEMOGLOBIN 15.1 g/dL (10.9-14.3); MEAN CORPUSCULAR HEMOGLOBIN 29.9 uug (24.7-32.8); MEAN CORPUSCULAR HGB CONC 34 g/dL (32.3-35.6); MEAN CORPUSCULAR VOLUME 89.1 fL (75.5-95.3); NEUTROPHILS % (AUTO) 66.7 % (38.5-71.5); PLATELET COUNT (AUTO) 272 K/uL (179-408); POTASSIUM 3.6 mmol/L (3.5-5.1); RED BLOOD CELL COUNT(AUTO) 5.04 MIL/uL (3.63-4.92); WHITE BLOOD COUNT (AUTO) 7.7 K/uL (3.8-11.8)
[2020-09-10 14:29] LABS: BASOPHILS % (AUTO) 0.5 % (0.0-2.0); EOSINOPHILS # (AUTO) 0.3 K/uL (0.0-0.7); EOSINOPHILS % (AUTO) 3.6 % (0.0-7.0); LYMPHOCYTES # (AUTO) 1.2 K/uL (20.0-40.0); MONOCYTES % (AUTO) 13.2 % (0.0-11.0); NEUTROPHILS # (AUTO) 5.1 K/uL (1.8-8.9)
[2020-09-10 14:38] LABS: *BILIRUBIN,URIN NEGATIVE (NEGATIVE); *BLOOD, URINE 2+ (NEGATIVE); *COLOR,URINE YELLOW (YELLOW); *KETONES,URINE NEGATIVE (NEGATIVE); *UROBILINOGEN,URINE 0.2 E.U./dl (NORMAL); LEUKOCYTE ESTERASE ,URINE TRACE (NEGATIVE); NITRITE, URINE NEGATIVE (NEGATIVE); UGLUCOSE NEGATIVE (NEGATIVE)
[2020-09-10 14:39] LABS: BILIRUBIN,DIRECT 0.1 mg/dL (0.0-0.2); BILIRUBIN,TOTAL 0.5 mg/dL (0.2-1.0); TOTAL PROTEIN, SERUM 7.5 g/dL (6.4-8.2)
[2020-09-10 14:47] LABS: *CLARITY,URINE HAZY (CLEAR); BACTERIA,URINE FEW /HPF (NONE SEEN); SQUAMOUS EPITHELIAL CELL,UR MODERATE /HPF (NONE SEEN)
--- NOTE | 2020-09-10 15:36 | NUR ---
Patient discharged to home in stable condition. Patient able to ambulate with steady gait, states will drive her home, Rx given, took all belngings, no signs of acute distress noted. Written and verbal after care instructions given. Patient verbalizes understanding of instructions. Stressed follow up or return to ER for worsening s/s.
[2020-09-10 15:38] VITALS: BP 121/86
== END 2020-09-10 15:39 | disposition home or self-care (01) ==
LOC: ER 13:38
DX: R10.31 Right lower quadrant pain (principal); R10.32 Left lower quadrant pain; K57.90 Diverticulosis of intestine, part unspecified, without perforation or abscess without bleeding; Z90.49 Acquired absence of other specified parts of digestive tract; E03.9 Hypothyroidism, unspecified; Z90.710 Acquired absence of both cervix and uterus; Z98.890 Other specified postprocedural states; F17.200 Nicotine dependence, unspecified, uncomplicated; F10.20 Alcohol dependence, uncomplicated; F32.9 Major depressive disorder, single episode, unspecified; F41.9 Anxiety disorder, unspecified; Z79.890 Hormone replacement therapy; Z79.899 Other long term (current) drug therapy
CPT/HCPCS: 36415; 74177; 80048; 80076; 81001; 83605; 83690; 85025; 96361; 96374; 96375; 96376; 99285; J1170 ×2; J2405 ×2; Q9967; A4663; J7030; J7050

== ENCOUNTER 2020-09-24 10:35 | Emergency (ER) | payer MEDICAID ==
[~2020-09-24] VITALS: Ht 172.7 cm; Wt 93.0 kg
[~2020-09-24 10:35] MED LIST changes: +ATOR10TA PO; +HYDR-3980 PO; -LEVO200T PO
--- NOTE | 2020-09-24 10:49 | NUR ---
Dr Nova at the bedside for MSE.
[2020-09-24] MEDS ORDERED: HYDROMORPHONE 1 MG/1 ML DISP.SYRIN IV ONE (11:00)
[2020-09-24] MEDS ORDERED: PANTOPRAZOLE SODIUM 40 MG VIAL IV ONE (11:00)
[2020-09-24] MEDS ORDERED: IV NORMAL SALINE 1000 ML BAG IV ONE (11:00)
[2020-09-24] MEDS ORDERED: ONDANSETRON 4 MG/2 ML VIAL IV ONE (11:00)
[2020-09-24] MEDS ORDERED: HYDROMORPHONE 1 MG/1 ML DISP.SYRIN ONE (11:04)
[2020-09-24] MEDS ORDERED: PANTOPRAZOLE SODIUM 40 MG VIAL ONE (11:05)
[2020-09-24] MEDS ORDERED: ONDANSETRON 4 MG/2 ML VIAL ONE (11:05)
[2020-09-24 11:09] LABS: BASOPHILS # (AUTO) 0.1 K/uL (0.0-8.0); BASOPHILS % (AUTO) 1.2 % (0.0-2.0); EOSINOPHILS % (AUTO) 0.5 % (0.0-7.0); HEMOGLOBIN 15.4 g/dL (10.9-14.3); LYMPHOCYTES # (AUTO) 1.5 K/uL (20.0-40.0); MEAN CORPUSCULAR HEMOGLOBIN 29.9 uug (24.7-32.8); MEAN CORPUSCULAR HGB CONC 34 g/dL (32.3-35.6); MEAN CORPUSCULAR VOLUME 87.5 fL (75.5-95.3); MONOCYTES # (AUTO) 0.6 K/uL (2.0-10.0); MONOCYTES % (AUTO) 8.5 % (0.0-11.0); NEUTROPHILS # (AUTO) 4.5 K/uL (1.8-8.9); NEUTROPHILS % (AUTO) 66.8 % (38.5-71.5); PLATELET COUNT (AUTO) 280 K/uL (179-408); RED BLOOD CELL COUNT(AUTO) 5.15 MIL/uL (3.63-4.92); WHITE BLOOD COUNT (AUTO) 6.7 K/uL (3.8-11.8)
[2020-09-24 11:22] LABS: BILIRUBIN,DIRECT 0.2 mg/dL (0.0-0.2); BILIRUBIN,TOTAL 0.5 mg/dL (0.2-1.0); CREATININE 0.9 mg/dL (0.6-1.3); POTASSIUM 3.8 mmol/L (3.5-5.1); TOTAL PROTEIN, SERUM 6.4 g/dL (6.4-8.2)
--- NOTE | 2020-09-24 11:30 | NUR ---
Pt denies nausea at this time, able to tolorate fluid PO. Continue monitoring.
[2020-09-24 12:08] VITALS: BP 144/67
--- NOTE | 2020-09-24 12:08 | NUR ---
Patient discharged to home in stable condition. Written and verbal after care instructions given. Patient verbalizes understanding of instructions. Stressed follow up or return to ER for worsening s/s.
--- NOTE | 2020-09-24 12:08 | NUR ---
IV removed. Catheter intact and site benign. Pressure and 4x4 gauze applied to site. No bleeding noted.
== END 2020-09-24 12:08 | disposition home or self-care (01) ==
LOC: ER 10:35
DX: F10.129 Alcohol abuse with intoxication, unspecified (principal); Y90.8 Blood alcohol level of 240 mg/100 ml or more; R11.2 Nausea with vomiting, unspecified; Z90.49 Acquired absence of other specified parts of digestive tract; E03.9 Hypothyroidism, unspecified; Z79.890 Hormone replacement therapy; Z90.710 Acquired absence of both cervix and uterus; F32.9 Major depressive disorder, single episode, unspecified; F41.9 Anxiety disorder, unspecified; Z79.899 Other long term (current) drug therapy
CPT/HCPCS: 36415; 80048; 80076; 80320; 83690; 85025; 85730; 96361; 96374; 96375; 99284; C9113; J1170; J2405; A4663; G0480; J7030

== ENCOUNTER 2020-09-25 11:30 | Emergency (ER) | payer MEDICAID ==
[~2020-09-25] VITALS: Ht 172.7 cm; Wt 93.0 kg
[2020-09-25] MEDS ORDERED: FAMOTIDINE. 20 MG/2 ML VIAL IV ONE ×2 (11:45→12:04)
[2020-09-25] MEDS ORDERED: IV NORMAL SALINE 1000 ML BAG IV ONE (11:45)
[2020-09-25] MEDS ORDERED: MAG HYDROX/AL HYDROX/SIMETH 30 ML LIQUID UDC PO ONE (11:45)
[2020-09-25] MEDS ORDERED: MAG HYDROX/AL HYDROX/SIMETH 30 ML LIQUID UDC ONE (12:04)
[2020-09-25 12:07] LABS: BASOPHILS % (AUTO) 0.3 % (0.0-2.0); EOSINOPHILS # (AUTO) 0.1 K/uL (0.0-0.7); EOSINOPHILS % (AUTO) 1.8 % (0.0-7.0); HEMOGLOBIN 14.6 g/dL (10.9-14.3); LYMPHOCYTES # (AUTO) 1.1 K/uL (20.0-40.0); LYMPHOCYTES % (AUTO) 12.9 % (20.5-51.5); MEAN CORPUSCULAR HEMOGLOBIN 29.7 uug (24.7-32.8); MEAN CORPUSCULAR HGB CONC 34 g/dL (32.3-35.6); MEAN CORPUSCULAR VOLUME 87.7 fL (75.5-95.3); MONOCYTES # (AUTO) 0.8 K/uL (2.0-10.0); MONOCYTES % (AUTO) 9.8 % (0.0-11.0); NEUTROPHILS # (AUTO) 6.2 K/uL (1.8-8.9); NEUTROPHILS % (AUTO) 75.2 % (38.5-71.5); PLATELET COUNT (AUTO) 231 K/uL (179-408); RED BLOOD CELL COUNT(AUTO) 4.91 MIL/uL (3.63-4.92); WHITE BLOOD COUNT (AUTO) 8.2 K/uL (3.8-11.8)
[2020-09-25 12:15] LABS: *BILIRUBIN,URIN NEGATIVE (NEGATIVE); *BLOOD, URINE 1+ (NEGATIVE); *CLARITY,URINE CLEAR (CLEAR); *COLOR,URINE LIGHT YELLOW (YELLOW); *KETONES,URINE NEGATIVE (NEGATIVE); *URINE HCG, QUAL NEG (NEGATIVE); *UROBILINOGEN,URINE 0.2 E.U./dl (NORMAL); LEUKOCYTE ESTERASE ,URINE TRACE (NEGATIVE); NITRITE, URINE NEGATIVE (NEGATIVE); UGLUCOSE NEGATIVE (NEGATIVE)
[2020-09-25 12:22] LABS: ALANINE AMINOTRANSFERASE 64 U/L (14-59); ALKALINE PHOSPHATASE 80 U/L (50-136); ASPARTATE AMINOTRANSFERASE 55 U/L (15-37); BILIRUBIN,DIRECT 0.3 mg/dL (0.0-0.2); BILIRUBIN,TOTAL 1.2 mg/dL (0.2-1.0); CARBON DIOXIDE 23 mmol/L (21-32); CHLORIDE 102 mmol/L (98-107); CREATININE 0.8 mg/dL (0.6-1.3); GLUCOSE 105 mg/dL (74-106); LIPASE 775 U/L (73-393); POTASSIUM 3.4 mmol/L (3.5-5.1); TOTAL PROTEIN, SERUM 6.4 g/dL (6.4-8.2); UREA NITROGEN, BLOOD 10 mg/dL (7-18)
[2020-09-25 12:29] LABS: ETHANOL 190 MG/DL (0-0)
[2020-09-25] MEDS ORDERED: DICYCLOMINE HCL 10 MG CAPSULE PO ONE (12:30)
[2020-09-25] MEDS ORDERED: ONDANSETRON 4 MG/2 ML VIAL IV ONE (12:30)
[2020-09-25 12:31] LABS: ACETAMINOPHEN < 2.0 ug/mL (10-30)
[2020-09-25 12:31] LABS: *AMPHETAMINE, URINE NEGATIVE (NEGATIVE); *CANNABINOID, URINE NEGATIVE (NEGATIVE); *COCCAINE, URINE NEGATIVE (NEGATIVE); *OPIATE, URINE NEGATIVE (NEGATIVE); *PHENCYCLIDINE SCREEN,URINE NEGATIVE (NEGATIVE)
[2020-09-25] MEDS ORDERED: DICYCLOMINE HCL LIQ 10 MG/5 ML UDC ONE (12:46)
[2020-09-25] MEDS ORDERED: ONDANSETRON 4 MG/2 ML VIAL ONE (12:46)
--- NOTE | 2020-09-25 13:05 | NUR ---
Per pt to be admitted to m/s, ER admitting notified, called tele floor for bed assignment, charge nurse to call back.
--- NOTE | 2020-09-25 13:10 | NUR ---
Pt's HMO ([employer]) was contacted by ER admitting for auth for admission.
--- NOTE | 2020-09-25 14:00 | NUR ---
Bill morgan in ED - 09/25/20 at 1447 by JUNIOR Per ER admitting pt may be admitted here. Called m/s floor for bed assigment, per charge nurse is at lunch, will call back.
--- NOTE | 2020-09-25 14:40 | NUR ---
Room 303 assigned for pt, assigned nurse to call back for report. Pt resting with NAD noted.
--- NOTE | 2020-09-25 14:47 | NUR ---
COVID-19 results faxed to [facility] as requested.
[2020-09-25] MEDS ORDERED: MORPHINE SULFATE 4 MG/1 ML DISP.SYRIN ONE ×2 (14:59→17:12)
[2020-09-25] MEDS ORDERED: MORPHINE SULFATE 4 MG/1 ML DISP.SYRIN IV ONE ×2 (15:00→17:00)
--- NOTE | 2020-09-25 15:02 | NUR ---
medicated for pain as per md order.
[2020-09-25 15:09] LABS: BACTERIA,URINE NONE SEEN /HPF (NONE SEEN)
[2020-09-25 15:10] LABS: SQUAMOUS EPITHELIAL CELL,UR FEW /HPF (NONE SEEN); URINE AMORPHOUS URATE FEW /HPF
--- NOTE | 2020-09-25 15:26 | NUR ---
Pt states her pain is improving, pain is now 5/10, was 9/10 earlier.
--- NOTE | 2020-09-25 16:30 | NUR ---
Received telephone call from Sofia from [facility]. Per Sofia patient will be transfered to [facility], Dr. Trotter accepting, pt will go to room 210A, call [phone] for report. Pt will be picked up by [facility], eta [id number].
--- NOTE | 2020-09-25 17:12 | NUR ---
MEDICATED FOR PAIN PER MD ORDER.
--- NOTE | 2020-09-25 17:27 | NUR ---
Pt trans to [facility] via [facility]. No s/s of acute distress noted upon trans. SBAR report given to Rebecca at [facility] via telephone.
== END 2020-09-25 17:28 | disposition short-term general hospital (02) ==
LOC: ER 11:30
DX: K85.90 Acute pancreatitis without necrosis or infection, unspecified (principal); F10.229 Alcohol dependence with intoxication, unspecified; Y90.6 Blood alcohol level of 120-199 mg/100 ml; I10 Essential (primary) hypertension; Z20.822 Contact with and (suspected) exposure to COVID-19; R11.2 Nausea with vomiting, unspecified; F17.210 Nicotine dependence, cigarettes, uncomplicated; E03.9 Hypothyroidism, unspecified; Z90.49 Acquired absence of other specified parts of digestive tract; F32.9 Major depressive disorder, single episode, unspecified; F41.9 Anxiety disorder, unspecified; Z79.890 Hormone replacement therapy; Z79.899 Other long term (current) drug therapy
CPT/HCPCS: 36415; 80048; 80076; 80299; 80307; 80320; 81001; 83690; 84702; 84703; 85025; 87086; 87426; 96361; 96374; 96375; 96376; 99285; 99406; J2270 ×2; J2405; J3490; A4663; G0480; J7030

== ENCOUNTER 2021-05-27 14:28 | Emergency (ER) | payer MEDICAID ==
[~2021-05-27] VITALS: Ht 172.7 cm; Wt 93.0 kg
[2021-05-27] MEDS ORDERED: KETOROLAC TROMETHAMINE 15 MG INJ IVP ONE (15:00)
[2021-05-27] MEDS ORDERED: IV NORMAL SALINE 1000 ML BAG IV ONE (15:00)
[2021-05-27 15:09] LABS: HEMATOCRIT 41.2 % (31.2-41.9); MEAN CORPUSCULAR HEMOGLOBIN 32.1 uug (24.7-32.8); MEAN CORPUSCULAR VOLUME 91.9 fL (75.5-95.3); PLATELET COUNT (AUTO) 251 K/uL (179-408)
[2021-05-27] MEDS ORDERED: KETOROLAC TROMETHAMINE 15 MG INJ ONE (15:09)
[2021-05-27] MEDS ORDERED: IOHEXOL 300MG/ML 100 ML INFUS..BTL ONE (15:11)
[2021-05-27] MEDS ORDERED: IV NORMAL SALINE 250 ML IV ONE (15:11)
[2021-05-27] MEDS ORDERED: SWABABLE VALVE TRANSFER SET EA MC ONE (15:11)
--- NOTE | 2021-05-27 15:14 | NUR ---
PT ALSO CONSULTED WITH DR JIMENEZ REGARDING RASHES ON LT FOREARM. PT SEEN AND EVALUATED BY MD. DISCHARGED IN STABLE CONDITION.
[2021-05-27 15:29] LABS: *BILIRUBIN,URIN NEGATIVE (NEGATIVE); *BLOOD, URINE 2+ (NEGATIVE); *CLARITY,URINE CLEAR (CLEAR); *COLOR,URINE YELLOW (YELLOW); *KETONES,URINE NEGATIVE (NEGATIVE); *UROBILINOGEN,URINE 0.2 E.U./dl (NORMAL); LEUKOCYTE ESTERASE ,URINE NEGATIVE (NEGATIVE); NITRITE, URINE NEGATIVE (NEGATIVE); PH,URINE 5.5 (5.0-8.0); UGLUCOSE NEGATIVE (NEGATIVE)
[2021-05-27 15:34] LABS: ALANINE AMINOTRANSFERASE 15 U/L (14-59); ALKALINE PHOSPHATASE 85 U/L (50-136); ASPARTATE AMINOTRANSFERASE 8 U/L (15-37); BILIRUBIN,DIRECT < 0.1 mg/dL (0.0-0.2); BILIRUBIN,TOTAL 0.1 mg/dL (0.2-1.0); CARBON DIOXIDE 26 mmol/L (21-32); CHLORIDE 104 mmol/L (98-107); CREATININE 0.9 mg/dL (0.6-1.3); GLUCOSE 121 mg/dL (74-106); LIPASE 406 U/L (73-393); POTASSIUM 3.9 mmol/L (3.5-5.1); TOTAL PROTEIN, SERUM 6.5 g/dL (6.4-8.2); UREA NITROGEN, BLOOD 14 mg/dL (7-18)
[2021-05-27] MEDS ORDERED: IBUP-1955 PO (15:51)
[2021-05-27] MEDS ORDERED: HYDROCODONE/APAP 5-325MG TABLET PO ONE (16:30)
[2021-05-27] MEDS ORDERED: HYDR-3974 PO (16:38)
[2021-05-27] MEDS ORDERED: HYDROCODONE/APAP 5-325MG TABLET ONE (16:40)
--- NOTE | 2021-05-27 16:46 | NUR ---
Patient discharged to home in stable condition. Written and verbal after care instructions given. Patient verbalizes understanding of instructions. Stressed follow up or return to ER for worsening s/s.pt walks in steady gait.
[2021-05-27 16:47] VITALS: BP 131/82
[2021-05-27 19:00] LABS: BACTERIA,URINE FEW /HPF (NONE SEEN)
[2021-05-27 19:01] LABS: SQUAMOUS EPITHELIAL CELL,UR FEW /HPF (NONE SEEN); YEAST,URINE FEW /HPF (NONE SEEN)
== END 2021-05-27 16:48 | disposition home or self-care (01) ==
LOC: ER 14:28
DX: R10.32 Left lower quadrant pain (principal); M25.552 Pain in left hip; Z90.49 Acquired absence of other specified parts of digestive tract; Z90.710 Acquired absence of both cervix and uterus; E03.9 Hypothyroidism, unspecified; Z79.890 Hormone replacement therapy; F32.A Depression, unspecified; Z79.899 Other long term (current) drug therapy; Z86.16 Personal history of COVID-19; F17.200 Nicotine dependence, unspecified, uncomplicated; E78.5 Hyperlipidemia, unspecified
CPT/HCPCS: 36415; 74177; 80048; 80076; 81001; 83690; 85025; 87086; 96361; 96374; 99285; J1885; Q9967; A4663; J7030; J7050

== ENCOUNTER 2021-11-18 14:34 | Emergency (ER) | payer MEDICAID ==
[~2021-11-18] VITALS: Ht 172.7 cm; Wt 93.0 kg
[~2021-11-18 14:34] MED LIST changes: -ATOR10TA PO; -CHLO25CA10 PO; -CHLO25CA22 PO; -ERGO500040 PO; -ESCI10TA PO; +HYDR-3974 PO; +IBUP-1955 PO
--- NOTE | 2021-11-18 14:45 | NUR ---
DR JIMENEZ AT BEDSIDE FOR EVALUATION.
[2021-11-18] MEDS ORDERED: KETOROLAC TROMETHAMINE 15 MG INJ ONE (15:53)
[2021-11-18] MEDS ORDERED: KETOROLAC TROMETHAMINE 15 MG INJ IM ONE (16:00)
--- NOTE | 2021-11-18 16:04 | NUR ---
DR JIMENEZ REVIEWED XRAY RESULTS WITH PATIENT. MEDICATED FOR PAIN ASPER MD ORDER.
== END 2021-11-18 16:06 | disposition home or self-care (01) ==
LOC: ER 14:34
DX: S63.502A Unspecified sprain of left wrist, initial encounter (principal); X50.9XXA Other and unspecified overexertion or strenuous movements or postures, initial encounter; Y93.K1 Activity, walking an animal; Y92.89 Other specified places as the place of occurrence of the external cause; F17.200 Nicotine dependence, unspecified, uncomplicated; E78.5 Hyperlipidemia, unspecified; E03.9 Hypothyroidism, unspecified; Z79.890 Hormone replacement therapy; Z79.899 Other long term (current) drug therapy; Z90.49 Acquired absence of other specified parts of digestive tract
CPT/HCPCS: 73110; 96372; 99283; J1885; A4663

== ENCOUNTER 2022-05-28 22:12 | Emergency (ER) | payer SELFPAY ==
--- NOTE | 2022-05-28 22:22 | NUR ---
PATIENT WAS CALLED TO BE TRIAGED BUT WAS NOT PRESENT IN THE WAITING ROOM OR OUTSIDE OF ER.
--- NOTE | 2022-05-28 22:38 | NUR ---
PATIENT WAS CALLED TO BE TRIAGED BUT WAS NOT PRESENT IN THE WAITING ROOM OR OUTSIDE OF ER.
--- NOTE | 2022-05-28 22:53 | NUR ---
PATIENT WAS CALLED TO BE TRIAGED BUT WAS NOT PRESENT. PATIENT WAS NOT TRIAGED OR SEEN BY ERMD.
== END 2022-05-28 22:54 | disposition left against medical advice (07) ==
LOC: ER 22:15
DX: Z53.21 Procedure and treatment not carried out due to patient leaving prior to being seen by health care provider (principal)

== ENCOUNTER 2023-05-05 14:05 | Emergency (ER) | payer MEDICAID ==
[~2023-05-05] VITALS: Ht 175.3 cm; Wt 79.4 kg
[2023-05-05 14:07] VITALS: O2SAT 99
== END 2023-05-05 15:34 | disposition left against medical advice (07) ==
LOC: ER 14:05
DX: Z53.21 Procedure and treatment not carried out due to patient leaving prior to being seen by health care provider (principal)